=== PATIENT | female | born 1955 | race Asian ===

== ENCOUNTER 2023-05-28 00:04 | Emergency (ER) | payer MEDICARE, MEDICAID ==
[~2023-05-28] VITALS: Ht 162.6 cm; Wt 71.0 kg
[2023-05-28 00:10] VITALS: TEMP 98.1
[2023-05-28] MEDS ORDERED: KETOROLAC TROMETHAMINE 60 MG/2 ML VIAL IM ONE (00:30)
[2023-05-28 01:12] VITALS: BP 118/74; PULSE 74; RESP 18
[2023-05-28] MEDS ORDERED: IBUP-1492 PO (01:59)
== END 2023-05-28 02:05 | disposition home or self-care (01) ==
LOC: EMS 00:07
DX: R51.9 Headache, unspecified (principal); E78.00 Pure hypercholesterolemia, unspecified; I10 Essential (primary) hypertension; I48.91 Unspecified atrial fibrillation
CPT/HCPCS: 99283; 96372; J1885

== ENCOUNTER 2024-03-03 23:42 | Inpatient (IN) | payer MEDICARE, MEDICAID ==
[~2024-03-03] VITALS: Ht 160 cm; Wt 73.2 kg
[~2024-03-03 23:42] MED LIST: IBUP-1492 PO
[2024-03-04 00:44] LABS: COVID AG,FIA SOURCE NASAL SWAB
[2024-03-04 00:59] LABS: BASOPHILS % (AUTO) 0.9 % (0.0-2.0); EOSINOPHILS % (AUTO) 0.5 % (1.0-6.0); HEMATOCRIT 39.3 % (36-46); HEMOGLOBIN 12.4 g/dL (12.0-16.0); LYMPHOCYTES # (AUTO) 1.1 K/uL (1.0-4.8); LYMPHOCYTES % (AUTO) 10.2 % (22.0-44.0); MEAN CORPUSCULAR HEMOGLOBIN 21.3 pg (26.0-34.0); MEAN CORPUSCULAR HGB CONC 31.4 G/dL (31.0-37.0); MEAN CORPUSCULAR VOLUME 68 fL (80-100); MONOCYTES # (AUTO) 0.4 K/uL (0.1-1.0); MONOCYTES % (AUTO) 3.7 % (2.0-9.0); NEUTROPHILS # (AUTO) 8.8 K/uL (1.8-7.7); NEUTROPHILS % (AUTO) 84.7 % (40.0-70.0); PLATELET COUNT (AUTO) 215 K/uL (150-450); RED BLOOD CELL COUNT(AUTO) 5.81 MIL/uL (4.00-5.20); RED CELL DISTRIBUTION WIDTH 15.9 % (11.5-14.5); WHITE BLOOD COUNT (AUTO) 10.4 K/uL (4.5-11.0)
[2024-03-04 01:01] LABS: INFLUENZA TYPE A NEGATIVE FOR TYPE A (NEGATIVE); INFLUENZA TYPE B NEGATIVE FOR TYPE B (NEGATIVE); SARS-COV2 (COVID) ANTIGEN,FIA Negative (Negative)
[2024-03-04 01:09] LABS: CALCIUM, TOTAL 9.1 mg/dL (8.8-10.5); CREATININE 1.24 mg/dL (0.60-1.30)
[2024-03-04 01:17] LABS: RBC MORPHOLOGY COMMENT ABNORMAL RBC MORPH; TROPONIN I-HIGH SENSITIVITY 9 ng/L (<51)
[2024-03-04 01:36] LABS: BILIRUBIN,TOTAL 0.7 mg/dL (0.1-1.0); TOTAL PROTEIN, SERUM 8.4 g/dL (6.4-8.2)
[2024-03-04] MEDS: ACETAMINOPHEN 500 MG TABLET PO ONE (01:49)
[2024-03-04] MEDS: FAMOTIDINE 20 MG/2 ML VIAL IVP ONE (02:28)
[2024-03-04] MEDS: ONDANSETRON HCL 4 MG/2 ML VIAL IVP ONE (02:28)
[2024-03-04] MEDS: SODIUM CHLORIDE 0.9% 1,000 ML IV ONE (02:28)
[2024-03-04] MEDS ORDERED: ONDANSETRON HCL 4 MG/2 ML VIAL IVP PRN (04:30)
[2024-03-04] MEDS ORDERED: ALBUTEROL SULFATE 2.5 MG/0.5 ML NEB SOLUTION NEB PRN (04:30)
[2024-03-04] MEDS ORDERED: ACETAMINOPHEN 325 MG TABLET PO PRN (04:30)
[2024-03-04] MEDS ORDERED: IPRATROPIUM BROMIDE 0.5 MG/2.5 ML NEB SOLUTION NEB PRN (04:30)
[2024-03-04] MEDS: DOXYCYCLINE HYCLATE 100 MG TABLET PO ONE (05:03)
[2024-03-04] MEDS: CefTRIAXone 1 GM/DEXTROSE 50 ML IV ONE (05:03)
[2024-03-04] MEDS ORDERED: SODIUM CHLORIDE 0.9% 100 ML ONE (06:51)
[2024-03-04] MEDS ORDERED: IOHEXOL 350 MG/ML 100 ML VIAL ONE (06:51)
[2024-03-04] MEDS ORDERED: HEPARIN SODIUM,PORCINE 5,000 UNITS/ML VIAL SQ SCH (08:00)
[2024-03-04] MEDS ORDERED: APIX5TAB PO (08:17)
[2024-03-04] MEDS ORDERED: ATOR40TA28 PO (08:17)
[2024-03-04] MEDS ORDERED: [UNRECOGNIZED DRUG - REMARK] BC (08:17)
[2024-03-04] MEDS: RINGERS SOLUTION,LACTATED 1,000 ML IV ONE (08:52)
[2024-03-04] MEDS: ATORVASTATIN CALCIUM 40 MG TABLET PO SCH (10:13)
[2024-03-04] MEDS: APIXABAN 5 MG TABLET PO SCH (10:13)
[2024-03-04] MEDS: DOCUSATE SODIUM 100 MG CAPSULE PO SCH (10:13)
[2024-03-04 10:58] VITALS: BP 124/48; PULSE 93; RESP 18; TEMP 98; O2SAT 96
[2024-03-04] MEDS: FUROSEMIDE 20 MG/2 ML VIAL IVP ONE (11:14)
[2024-03-04 13:30] VITALS: BP 124/70; PULSE 99; RESP 18; TEMP 98.8; O2SAT 97
[2024-03-04 16:25] VITALS: BP 120/86; PULSE 80; RESP 18; TEMP 99; O2SAT 96
[2024-03-04 20:00] VITALS: BP 141/66; PULSE 87; RESP 18; TEMP 98.3; O2SAT 97
[2024-03-04] MEDS: METOPROLOL TARTRATE 25 MG TABLET PO SCH (21:10)
[2024-03-05] VITALS: BP 135/55; PULSE 79; RESP 18; TEMP 98; O2SAT 95
[2024-03-05 03:48] VITALS: BP 111/62; PULSE 75; RESP 17; TEMP 98.1; O2SAT 94
[2024-03-05 06:36] LABS: BASOPHILS % (AUTO) 0.3 % (0.0-2.0); EOSINOPHILS % (AUTO) 0.8 % (1.0-6.0); HEMATOCRIT 39.4 % (36-46); HEMOGLOBIN 12.5 g/dL (12.0-16.0); LYMPHOCYTES # (AUTO) 2.1 K/uL (1.0-4.8); LYMPHOCYTES % (AUTO) 26.5 % (22.0-44.0); MEAN CORPUSCULAR HEMOGLOBIN 21.5 pg (26.0-34.0); MEAN CORPUSCULAR HGB CONC 31.7 G/dL (31.0-37.0); MEAN CORPUSCULAR VOLUME 68 fL (80-100); MONOCYTES # (AUTO) 0.6 K/uL (0.1-1.0); MONOCYTES % (AUTO) 7.4 % (2.0-9.0); NEUTROPHILS # (AUTO) 5.2 K/uL (1.8-7.7); PLATELET COUNT (AUTO) 177 K/uL (150-450); RED CELL DISTRIBUTION WIDTH 15.4 % (11.5-14.5); WHITE BLOOD COUNT (AUTO) 8.1 K/uL (4.5-11.0)
[2024-03-05 06:49] LABS: ANION GAP 7 mmol/L (8-16); CALCIUM, TOTAL 8.6 mg/dL (8.8-10.5); CARBON DIOXIDE 28 mmol/L (22-29); CHLORIDE 102 mmol/L (98-107); CREATININE 0.91 mg/dL (0.60-1.30); GLOMERULAR FILTR. RATE CALC > 60 mL/min (>60); GLUCOSE,RANDOM 109 mg/dL (70-110); SODIUM SERUM 137 mmol/L (136-145); UREA NITROGEN, BLOOD 15 mg/dL (7-18)
[2024-03-05 06:57] LABS: RBC MORPHOLOGY COMMENT ABNORMAL RBC MORPH
[2024-03-05 09:30] VITALS: BP 107/61; PULSE 86; RESP 17; TEMP 98.2; O2SAT 94
[2024-03-05] MEDS: LOSARTAN POTASSIUM 50 MG TABLET PO SCH (09:33)
[2024-03-05 11:23] VITALS: BP 114/64; PULSE 78; RESP 18; TEMP 98; O2SAT 95
[2024-03-05 11:58] LABS: ALBUMIN 3.4 g/dL (3.4-5.0)
[2024-03-05] MEDS: CefTRIAXone 1 GM/DEXTROSE 50 ML IV SCH (13:32)
[2024-03-05 14:16] LABS: APPEARANCE,URINE HAZY (CLEAR); BILIRUBIN,URINE NEGATIVE (NEGATIVE); COLOR,URINE YELLOW (YELLOW); GLUCOSE, URINE (UA) NEGATIVE (NEGATIVE); KETONES,URINE NEGATIVE (NEGATIVE); LEUKOCYTE ESTERASE ,URINE LARGE (NEGATIVE); NITRATE,URINE NEGATIVE (NEGATIVE); OCCULT BLOOD,URINE MODERATE (NEGATIVE); PROTEIN,URINE TRACE mg/dL (NEGATIVE); SPECIFIC GRAVITIY, URINE 1.016 (1.003-1.030); UROBILINOGEN,URINE <=1.0 mg/dL (<=1.0)
[2024-03-05] MEDS: AZITHROMYCIN 500 MG/NS 250 ML IV SCH (14:22)
[2024-03-05 14:26] LABS: BACTERIA,URINE Few /HPF (None Seen); RBC,URINE 0-2 /HPF (0-2)
[2024-03-05 14:27] LABS: SQUAMOUS EPITHELIAL CELL,UR Few /LPF (None Seen)
[2024-03-05 15:14] VITALS: BP 105/51; PULSE 85; RESP 18; TEMP 98; O2SAT 96
[2024-03-05 19:36] VITALS: BP 120/57; PULSE 82; RESP 18; TEMP 98; O2SAT 96
[2024-03-06 00:10] VITALS: BP 112/50; PULSE 56; RESP 18; TEMP 98.3; O2SAT 94
[2024-03-06 03:23] VITALS: BP 102/61; PULSE 72; RESP 18; TEMP 98.2; O2SAT 96
[2024-03-06 08:13] VITALS: BP 110/61; PULSE 78; RESP 18; TEMP 98.3; O2SAT 97
[2024-03-06] MEDS ORDERED: LOSA-417 PO (10:50)
[2024-03-06] MEDS ORDERED: METO25XL PO (10:50)
[2024-03-06] MEDS ORDERED: CEFD300C18 PO (10:51)
[2024-03-06] MEDS ORDERED: AZIT-164 PO (10:51)
[2024-03-06 11:41] VITALS: BP 115/63; PULSE 82; RESP 19; TEMP 98; O2SAT 97
[2024-03-07] MEDS ORDERED: LOSARTAN POTASSIUM 25 MG TABLET PO SCH (09:00)
== END 2024-03-06 11:55 | disposition home health service (06) | DRG 314 ==
LOC: EMS 23:42 → EDH 03-04 05:39 → 5N 03-04 10:25
PROVIDERS: ADMIT Internal Medicine; ATTEND Internal Medicine
DX: I95.9 Hypotension, unspecified (principal); I50.33 Acute on chronic diastolic (congestive) heart failure; J18.9 Pneumonia, unspecified organism; J96.01 Acute respiratory failure with hypoxia; I48.19 Other persistent atrial fibrillation; I11.0 Hypertensive heart disease with heart failure; R55 Syncope and collapse; Z20.822 Contact with and (suspected) exposure to COVID-19; I34.0 Nonrheumatic mitral (valve) insufficiency; B02.9 Zoster without complications; E78.00 Pure hypercholesterolemia, unspecified; Z79.01 Long term (current) use of anticoagulants
CPT/HCPCS: 71045; 71275; 80048; 80053; 81001; 82040; 82550; 83690; 83735; 83880; 84145; 84484; 85025; 87040; 87086; 87804; 93005; 93306; 99285; J0456; J0696; J1644; J1940; J2405; J3490; J7050; J7120; 36415-L1; 36415-TC